=== PATIENT | male | born 1995 | race Caucasian/White ===

== ENCOUNTER 2017-07-13 09:11 | Emergency (ER) | payer BC, OTHER ==
[2017-07-13 10:01] VITALS: BP 120/69
--- NOTE | 2017-07-13 10:46 | UC ---
Skin Complaint HPI - HPI Summary HPI Summary: 21 year old male with skin complaint. c/o cyst to left upper nose that began today. States this happened before, eye became swollen, and need to go to a heat treating bluer for antibiotics. Previously he needed antibiotics and steroid injection. No fever. Presenting the same as before. has a pimple that previuosly became infected and became an abscess . [ End ] - History of Current Complaint Chief Complaint: UCSkin Time Seen by Provider: 07/13/17 09:57 Stated Complaint: NASAL COMPLAINT Hx Obtained From: Patient, Family/Ton Container Filler Onset/Duration: Gradual Onset Pain Intensity: 0 - Allergy/Home Medications Allergies/Adverse Reactions: Allergies Allergy/AdvReac Type Severity Reaction Status Date / Time No Known Allergies Allergy Verified 07/13/17 09:58 Review of Systems Skin: Other - acne on face and some swelling around the area Is Patient Immunocompromised?: No All Other Systems Reviewed And Are Negative: Yes PMH/Surg Hx/FS Hx/Imm Hx Previously Healthy: Yes - Surgical History Surgical History: None - Family History Known Family History: Positive: None - Social History Occupation: Student Lives: With Family Alcohol Use: None Substance Use Type: None Smoking Status (MU): Never Smoked Tobacco - Immunization History Vaccination Up to Date: Yes Physical Exam Triage Information Reviewed: Yes Appearance: Well-Appearing, No Pain Distress, Well-Nourished Vital Signs: Initial Vital Signs Temp 98.6 F 07/13/17 09:56 Pulse 63 07/13/17 09:56 Resp 16 07/13/17 09:56 BP 120/69 07/13/17 09:56 Pulse Ox 100 07/13/17 09:56 Vital Signs Reviewed: Yes Eye Exam: Normal ENT Exam: Normal Neck exam: Normal Respiratory Exam: Normal Cardiovascular Exam: Normal Musculoskeletal Exam: Normal Neurological Exam: Normal Psychological Exam: Normal Skin Exam: Normal Skin: Positive: Other - left aspect of nose with acne and swelling around the pimple. no fluctuance . no erythema. no discharge. Course/Dx - Course Course Of Treatment: mom requesting antibiotics so that this does not worsen . I did discuss the SE of antibiotics and they are aware of the SE. hot pack TID. f/u with derm. - Differential Diagnoses - Skin Complaint Differential Diagnoses: Abscess - Diagnoses Provider Diagnoses: abscess face Discharge - Discharge Plan Condition: Good Disposition: HOME Prescriptions: Doxycycline Hyclate 100 mg PO BID #20 tablet Referrals: Santos Chaney MD [Primary Care Provider] - 4 Days Additional Instructions: Due to your previous condition of getting an infected pimple on your face that caused an abscess we will start treatment at this time with oral antibiotics. if there are any concerns please return to your PCP or It Program Auditor.
== END 2017-07-13 10:57 | disposition home or self-care (01) ==
LOC: UCCORT 09:11
DX: J34.0 Abscess, furuncle and carbuncle of nose (principal)
CPT/HCPCS: 99212; G0463

== ENCOUNTER 2017-08-17 15:12 | Emergency (ER) | payer OTHER ==
[2017-08-17 16:06] VITALS: BP 136/52
--- NOTE | 2017-08-17 16:18 | UC ---
Throat Pain/Nasal Isaias HPI - HPI Summary HPI Summary: Sore throat starting yesterday. Congestion today but ST is better. No cough. - History of Current Complaint Chief Complaint: UCGeneralIllness Stated Complaint: FEVER SORE THROAT Time Seen by Provider: 08/17/17 16:09 Onset/Duration: Sudden Onset, Lasting Days - 2, Still Present Pain Intensity: 0 Associated Signs & Symptoms: Positive: Nasal Discharge, Fever. Negative: Hoarseness Related History: Seasonal Allergies - Allergies/Home Medications Allergies/Adverse Reactions: Allergies Allergy/AdvReac Type Severity Reaction Status Date / Time No Known Allergies Allergy Verified 08/17/17 16:06 Home Medications: Home Medications NK [No Home Medications Reported] 08/17/17 [History Confirmed 08/17/17] PMH/Surg Hx/FS Hx/Imm Hx Previously Healthy: Yes - Surgical History Surgical History: None - Family History Known Family History: Positive: Hypertension Negative: Cardiac Disease, Diabetes - Social History Occupation: Student Lives: With Family Alcohol Use: None Substance Use Type: None Smoking Status (MU): Never Smoked Tobacco - Immunization History Vaccination Up to Date: Yes Review of Systems Constitutional: Fever ENT: Sore Throat, Nasal Discharge Is Patient Immunocompromised?: No All Other Systems Reviewed And Are Negative: Yes Physical Exam Triage Information Reviewed: Yes Appearance: No Pain Distress, Well-Nourished, Ill-Appearing - mild Vital Signs: Initial Vital Signs Temp 100.2 F 08/17/17 15:58 Pulse 95 08/17/17 15:58 Resp 17 08/17/17 15:58 BP 136/52 08/17/17 15:58 Pulse Ox 100 08/17/17 15:58 Vital Signs Reviewed: Yes Eyes: Positive: Conjunctiva Clear ENT: Positive: Pharynx normal, TMs normal Neck: Positive: Supple, Nontender, Enlarged Nodes @ - bilateral anterior cervical Respiratory: Positive: Lungs clear Cardiovascular Exam: Normal Musculoskeletal Exam: Normal Neurological Exam: Normal Psychological Exam: Normal Skin Exam: Normal Throat Pain/Nasal Course/Dx - Differential Dx/Diagnosis Differential Diagnosis/HQI/PQRI: Peritonsillar Abscess, Pharyngitis, Tonsillitis , URI Provider Diagnoses: Viral pharyngitis Discharge - Discharge Plan Condition: Stable Disposition: HOME Patient Education Materials: Upper Respiratory Infection (ED), Pharyngitis (ED) Referrals: Nate Chávez MD [Primary Care Provider] -
== END 2017-08-17 16:31 | disposition home or self-care (01) ==
LOC: UCCORT 15:12
DX: J02.8 Acute pharyngitis due to other specified organisms (principal)
CPT/HCPCS: 87651; 99211; G0463

== ENCOUNTER 2018-01-15 17:28 | Emergency (ER) | payer OTHER ==
--- OUTSIDE RECORDS SUMMARY | 2018-01-15 18:20 | XMS REPORT ---
:1995 External Reference #:[id number] Author Organization [facility] Address [address] [place] [address] Phone [phone] Care Team Providers Name Role Phone Elan Barraza MD Care Team Information Game Programmer Unavailable Elan Barraza MD Primary Care Physician Unavailable Payers Type Date Identification Numbers Payment Provider Subscriber Commercial Effective: Policy Number: MVP Lee Sweet JR 2015 [id number] PayID: [id number] [address] [place] [address] Problems Description No Information Family History Date Family Member(s) Problem(s) Comments Father 52 Father Hypertension Mother Iron deficiency Mother 45 First Brother Hirschsprung's disease First Brother 13 Social History Type Date Description Comments Smoking Nonsmoker Allergies, Adverse Reactions, Alerts Date Description Reaction Status Severity Comments 01/12/2018 NKDA active Medications Medication Date Status Form Strength Qnty SIG Indications Ordering Provider No Active 01/12/2018 Active Unknown Medications Vital Signs Date Vital Result Comment 01/12/2018 BP Systolic 118 mmHg BP Diastolic 62 mmHg Heart Rate 62 /min Body Temperature 97.9 F Height 70 inches 5'10" Weight 137.00 lb BMI (Body Mass Index) 19.7 kg/m2 Results Description No Information Procedures Description No Information Plan of Care 01/12/2018 - Elan Barraza MDZ00.00 Encntr for general adult medical exam w/o abnormal findingsNew Labs:CBC Electronic-ALL Lab CompaniFerritin (Fma/ CMC/Centrex)AllNew Medication:No Active MedicationsComments:~B_~U_Medication Management~b_~u_ Patient Understands medications he's taking? Yes No Are there Barriers to Adherence? Yes No Has the patient been asked about herbal supplements and therapies, and OTC meds? Yes No
--- OUTSIDE RECORDS SUMMARY | 2018-01-15 18:20 | XMS REPORT ---
:1997 External Reference #:[id number] Author Organization [facility] Address [address] [place] [address] [place] [address] Phone [phone] Care Team Providers Name Role Phone Issa Rubin C.P.N.P Care Team Information Deputy Director Of Finance Unavailable Payers Type Date Identification Numbers Payment Provider Subscriber Commercial Effective: Policy Number: BC/DELMY [facility] Zohreh Sweet 2013 [id number] Expires: 2015 PayID: [id number] [address] [address] [place] [address] Commercial Effective: 2015 Policy Number: [facility] Babak Sweet Jr. [id number] PayID: [id number] [address] [place] [address] Problems Description No Active Problems Social History Type Date Description Comments Smoke-Free Home is smoke-free Allergies, Adverse Reactions, Alerts Date Description Reaction Status Severity Comments 01/30/2015 NKDA active Medications Medication Date Status Form Strength Qnty SIG Indications Ordering Provider Prednisone Hx Tablets 20mg qs 1 tablet S50.861A Issa 018 - by mouth Sharkness, twice C.P.N.P 018 daily for 5 days No Active Hx Unknown Medications 017 - 018 Doxycycline Hx Capsules 100mg 2caps 2 caps by Issa Monohydrate 017 - mouth Sharkness, once C.P.N.P 017 today No Active Hx Nate Medications 015 - Sendek, Gm 017 Immunizations CPT Code Status Date Vaccine Lot # [id number] Given 03/17/2017 Flu Inj Quadrivalent .5ml Preserve Free [id number] 74581 Given 01/08/2017 Hepatitis A Vaccine Adult Dose age 19+ [id number] 09710 Given 03/15/2016 Flu Inj Quadrivalent .5ml Preserve Free [id number] 14631 Given 02/02/2016 Meningococcal B Recombinant Protein And Outer [id number] Membrane [Bexsero] 18898 Given 01/01/2016 Meningococcal B Recombinant Protein And Outer [id number] Membrane [Bexsero] 96133 Given 01/30/2015 Meningococcal A,C,Y,W135 (Menactra) Preservative [id number] Free 95868 Given 01/30/2015 Flu Inj Quadrivalent .5ml Preserve Free [id number] 27783 Given 03/18/2014 Flu Inj Quadrivalent .5ml Preserve Free 40365 Given 03/29/2013 Flu Inj Quadrivalent .5ml Preserve Free 78117 Given 10/24/2012 HPV 4 Gardasil 4 66588 Given 06/15/2012 HPV 4 Gardasil 4 42633 Given 04/06/2012 Varicella (Chicken Pox) Immunization 21226 Given 04/06/2012 HPV 4 Gardasil 4 59857 Given 11/09/2009 TdaP Immunization Age 7+ 99949 Given 12/24/2002 DTaP Immunization under age 7 84803 Given 12/24/2002 MMR Virus Immunization 91089 Given 07/12/1999 DTaP Immunization under age 7 39733 Given 07/12/1999 Hib Vaccine 61144 Given 03/27/1999 Varicella (Chicken Pox) Immunization 41139 Given 03/27/1999 MMR Virus Immunization 20568 Given 12/27/1998 Hepatitis B Imm Age 0 to 19yr 39106 Given 06/29/1998 DTaP Immunization under age 7 63431 Given 06/29/1998 Hib Vaccine 10572 Given 04/20/1998 DTaP Immunization under age 7 16159 Given 04/20/1998 Hib Vaccine 53574 Given 02/16/1998 Hepatitis B Imm Age 0 to 19yr 48724 Given 02/16/1998 DTaP Immunization under age 7 91886 Given 02/16/1998 Hib Vaccine 82138 Given 01/06/1998 Hepatitis B Imm Age 0 to 19yr Vital Signs Date Vital Result Comment 01/07/2018 Weight 140.12 lb Weight in kg's 63.561 01/08/2017 Height 69 inches 5'9" Weight 139.31 lb Weight in kg's 63.192 Heart Rate 58 /min BP Systolic 136 mmHg BP Diastolic 69 mmHg BMI (Body Mass Index) 20.6 kg/m2 Body Mass Index Percentile 23 % Right ear audiology results 20 db Left ear audiology results 20 db Left Visual Acuity Distance 20/20 Corrective Lenses Right Visual Acuity Distance 20/20 Corrective Lenses 12/05/2016 Weight 139.00 lb Weight in kg's 63.050 Weight Percentile 28th Body Temperature 98.8 F 10/25/2016 Weight 138.00 lb Weight in kg's 62.597 Weight Percentile 27th Body Temperature 98.7 F 09/26/2016 Weight 140.00 lb Weight in kg's 63.504 Weight Percentile 31st Body Temperature 98.2 F 08/14/2016 Weight 141.00 lb Weight in kg's 63.958 Weight Percentile 33rd Heart Rate 79 /min BP Systolic 130 mmHg BP Diastolic 77 mmHg Blood Pressure Percentile 0 % 01/01/2016 Height 69.5 inches 5'9.50" Height Percentile 52 % Weight 137.25 lb Weight in kg's 62.257 Weight Percentile 31st Heart Rate 66 /min BP Systolic 128 mmHg BP Diastolic 77 mmHg Blood Pressure Percentile 74 % BMI (Body Mass Index) 20.0 kg/m2 Body Mass Index Percentile 23 % 01/30/2015 Height 69 inches 5'9" Height Percentile 49 % Weight 134.00 lb Weight in kg's 60.782 Weight Percentile 35th Heart Rate 55 /min BP Systolic 119 mmHg BP Diastolic 74 mmHg Blood Pressure Percentile 49 % BMI (Body Mass Index) 19.8 kg/m2 Body Mass Index Percentile 28 % Results Test Date Test Result H/L Range Note Laboratory test finding 03/17/2017 .Hemoglobin in house 14.8 Laboratory test finding 01/08/2017 .Hemoglobin in house 13.6 Laboratory test finding 09/26/2016 .Strep A, Rapid Neg Laboratory test finding 04/19/2015 .Hemoglobin in house 15.1 Laboratory test finding 01/30/2015 Hemoglobin 13 Procedures Description No Information Encounters Type Date Location Provider CPT E/M Dx Office Visit 01/07/2018 3:45p [facility] Meliza FarrisP 06813 S50.861A Office Visit 03/17/2017 2:00p Main Office Nurses Main Office 88487 D53.9 Office Visit 01/08/2017 7:45a [facility] Nate Chávez M.D. 65304 Z00.00 Z13.89 Z00.00 Office Visit 12/05/2016 9:00a [facility] Lora Sosa D.O. 12309 R59.0 Office Visit 10/25/2016 9:30a [facility] Nate Chávez M.D. 25008 I86.1 Office Visit 09/26/2016 9:15a [facility] Issa Rubin C.P.NFacundoP 29346 J02.9 Office Visit 08/14/2016 8:30a [facility] Nate Chávez M.D. 64860 Z13.89 Office Visit 01/01/2016 11:00a Main Office Nate Chávez M.D. 32244 Z00.00 Z13.89 Z00.00 Office Visit 01/30/2015 11:00a [facility] Nate Chávez M.D. 33208 V20.2 Plan of Care 01/07/2018 - Meliza FarrisPS50.861A Insect bite (nonvenomous) of right forearm, init encntrNew Medication:Prednisone 20 mgComments:Please call with any increase in redness, tenderness, swelling, fever or new symptoms develop, or there is no improvement over the next 24 hoursFollow up:As needed
[2018-01-15] MEDS ORDERED: methylPREDNISolone 125 MG* 2 ML VIAL IV ONE (18:53)
[2018-01-15 18:56] VITALS: BP 122/62
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
== END 2018-01-15 19:36 | disposition home or self-care (01) ==
LOC: UCCORT 17:28
DX: L50.9 Urticaria, unspecified (principal)
CPT/HCPCS: 96372; 99212; G0463; J2930

== ENCOUNTER 2018-12-27 07:57 | Emergency (ER) | payer OTHER ==
[2018-12-27 08:13] VITALS: BP 129/60
[2018-12-27] MEDS ORDERED: Tetan/Diph/Pertus SYR(Tdap)* 0.5 ML SYR(BOOSTRIX) use SYR IM ONE (08:20)
[2018-12-27] MEDS ORDERED: Fluorescein Sodium TOPICAL* 1 MG TEST STRIP OPHTHALMIC ONE (08:20)
[2018-12-27] MEDS ORDERED: Tetracaine 0.5% OPTH.SOL 4 ML* 1 DROP BTL ONE (08:24)
--- NOTE | 2018-12-27 08:27 | UC ---
Eye Complaint HPI - HPI Summary HPI Summary: per triage, Sudden onset of left eye foreign body sensation while driving tractor down the road about an hour ago. Erythema and watering. - History of Current Complaint Chief Complaint: UCEye Stated Complaint: EYE CONCERN Time Seen by Provider: 12/27/18 08:19 Hx Obtained From: Patient Onset/Duration: Sudden Onset Timing: Constant Pain Intensity: 0 Location of Injury: Eye Lid (upper) Aggravating Factor(s): Blinking Alleviating Factor(s): Nothing Associated Signs And Symptoms: Negative: Negative, Drainage (Purulent), Vision Impairment Bilateral - Risk Factors Penetrating Injury Risk Factor: Negative Globe Rupture Risk Factors: Negative - Allergies/Home Medications Allergies/Adverse Reactions: Allergies Allergy/AdvReac Type Severity Reaction Status Date / Time No Known Allergies Allergy Verified 12/27/18 08:08 PMH/Surg Hx/FS Hx/Imm Hx Previously Healthy: Yes - Surgical History Surgical History: None - Family History Known Family History: Positive: None, Hypertension - father, Diabetes - first cousin IDDM, Other - mother: allergies and hypothyroidism Negative: Cardiac Disease - Social History Alcohol Use: None Substance Use Type: None Smoking Status (MU): Never Smoked Tobacco - Immunization History Most Recent Tetanus Shot: Unsure Hx Tetanus, Diphtheria Vaccination: Yes - <10 YEARS AGO Vaccination Up to Date: Yes Review of Systems All Other Systems Reviewed And Are Negative: No Constitutional: Negative: Fever Skin: Negative: Rash Eyes: Positive: Drainage - tearing, Eye Redness. Negative: Diplopia, Photophobia ENT: Negative: Sore Throat, Ear Ache, Nasal Discharge Neurological: Negative: Headache Physical Exam Triage Information Reviewed: Yes Appearance: Well-Appearing Vital Signs: Initial Vital Signs Temp 97.9 F 12/27/18 08:07 Pulse 60 12/27/18 08:07 Resp 16 12/27/18 08:07 BP 129/60 12/27/18 08:07 Pulse Ox 100 12/27/18 08:07 Vital Signs Reviewed: Yes Eyes: Positive: Other: - visual acuity no correction, OD/OU/OS 20/13. No auricular adenopathy. No periorbital edema or rash. PERRL, EMOI. Conjunctiva OS= red and eye tearing, OD is clear. AC's clear. Tetracaine drop OS. Lids everted OS and tiny spec on inside upper lid, swept away with moist Qtip. OS stained, no uptake. OD flushed with sterile NaCl. pt tolerated well. ENT: Negative: Nasal drainage Neurological: Positive: Alert Psychological: Positive: Normal Response To Family, Age Appropriate Behavior Skin Exam: Normal Skin: Negative: Rashes Eye Complaint Course/Dx - Differential Dx/Diagnosis Differential Diagnosis/HQI/PQRI: Other - FB found and removed. No abrasions, ulcerations, perforations or dendrites. Provider Diagnosis: Acute foreign body of conjunctiva Discharge - Sign-Out/Discharge Documenting (check all that apply): Patient Departure All imaging exams completed and their final reports reviewed: No Studies - Discharge Plan Condition: Stable Disposition: HOME Prescriptions: Erythromycin OPHTH.OINT* [Ilotycin OPHTH.OINT*] 1 applic LEFT EYE TID 5 Days #1 ophth.oint Patient Education Materials: Eye Foreign Body (ED) Referrals: Maritza Covarrubias MD [Medical Doctor] - Additional Instructions: FOLLOW UP DR COVARRUBIAS'S OFFICE IF NOT BETTER IN 1-2 DAYS OR SOONER IF WORSE. - Billing Disposition and Condition Condition: STABLE Disposition: Home - Attestation Statements Provider Attestation: I was available for consult. This patient was seen by the DAVID. The patient was not presented to , seen by or examined by az -Jeffry Davis MD
[2018-12-27] MEDS ORDERED: Erythromycin OPTH OINT* APPLIC OINT LEFT EYE ONE (08:39)
== END 2018-12-27 08:54 | disposition home or self-care (01) ==
LOC: UCCORT 07:57
DX: T15.12XA Foreign body in conjunctival sac, left eye, initial encounter (principal); S00.252A Superficial foreign body of left eyelid and periocular area, initial encounter; X58.XXXA Exposure to other specified factors, initial encounter; Y93.89 Activity, other specified; Y92.410 Unspecified street and highway as the place of occurrence of the external cause
CPT/HCPCS: 65205; 99213; A9270-GY; G0463

== ENCOUNTER 2019-03-06 18:10 | Emergency (ER) | payer OTHER ==
--- OUTSIDE RECORDS SUMMARY | 2019-03-06 18:18 | XMS REPORT | Continuity of Care Document ---
:1995 External Reference #:[id number] Author Name Kirk Bishop N.P. Address [address] [place] [id number] Problems Description No Information Available Social History Type Date Description Comments Sex Unknown ETOH Use Denies alcohol use Tobacco Use Start: Unknown Patient has never smoked Allergies, Adverse Reactions, Alerts Description No Known Drug Allergies Medications Description No Information Available Immunizations CPT Code Status Date Vaccine Lot # [id number] Given 03/17/2017 Influenza Virus Vaccine,Quadrivalent,Split,Preserv Free, 0.5mL,[place] [address] Given 01/08/2017 Hepatitis A Vaccine, Adult Dosage 75567 Given 03/15/2016 Influenza Virus Vaccine,Quadrivalent,Split,Preserv Free, 0.5mL,[place] [address] Given 02/02/2016 Meningococcal B(Bexsero)protn otrMembran Vesicle [place]ccn 2 [place] [address] Given 01/01/2016 Meningococcal B(Bexsero)protn otrMembran Vesicle Vccn 2 [place] sche [address] Given 01/30/2015 Menactra/Menveo Meningococcal Vaccine 38402 Given 01/30/2015 Influenza Virus Vaccine,Quadrivalent,Split,Preserv Free, 0.5mL,[place] [address] Given 03/18/2014 Influenza Virus Vaccine,Quadrivalent,Split,Preserv Free, 0.5mL,[place] [address]87 Given 03/29/2013 Influenza Virus Vaccine,Quadrivalent,Split,Preserv Free, 0.5mL,Im 01198 Given 10/24/2012 HPV Vaccine (Gardasil) 3 Dose Schedule 36235 Given 06/15/2012 HPV Vaccine (Gardasil) 3 Dose Schedule 58541 Given 04/06/2012 Varicella (Chicken Pox) Immunization 04786 Given 04/06/2012 HPV Vaccine (Gardasil) 3 Dose Schedule 26919 Given 11/09/2009 Tdap (Adacel) Ages 7 And Above Only 92102 Given 12/24/2002 DTaP Immunization 7 Yrs & Younger 56376 Given 12/24/2002 MMR Virus Immunization 66355 Given 07/12/1999 DTaP Immunization 7 Yrs & Younger 85611 Given 07/12/1999 Hib ACTHiB Vaccine 4 Dose Schedule 37016 Given 03/27/1999 Varicella (Chicken Pox) Immunization 89166 Given 03/27/1999 MMR Virus Immunization 39146 Given 12/27/1998 Hepatitis B Vac Ped/Adolescent 3 Dose Schedule 96586 Given 06/29/1998 DTaP Immunization 7 Yrs & Younger 95921 Given 06/29/1998 Hib ACTHiB Vaccine 4 Dose Schedule 34600 Given 04/20/1998 DTaP Immunization 7 Yrs & Younger 91501 Given 04/20/1998 Hib ACTHiB Vaccine 4 Dose Schedule 70853 Given 02/16/1998 Hepatitis B Vac Ped/Adolescent 3 Dose Schedule 96755 Given 02/16/1998 DTaP Immunization 7 Yrs & Younger 15178 Given 02/16/1998 Hib ACTHiB Vaccine 4 Dose Schedule 93792 Given 01/06/1998 Hepatitis B Vac Ped/Adolescent 3 Dose Schedule Vital Signs Date Vital Result Comment 01/20/2019 12:36pm Body Temperature 99.0 F Weight 150.12 lb Heart Rate 57 /min BP Systolic 122 mmHg BP Diastolic 74 mmHg O2 % BldC Oximetry 98 % 10/09/2018 10:17am Body Temperature 99.3 F Weight 143.00 lb Heart Rate 54 /min BP Systolic 118 mmHg BP Diastolic 78 mmHg Height 69.5 inches 5'9.50" O2 % BldC Oximetry 98 % BMI (Body Mass Index) 20.8 kg/m2 Results Description No Information Available Procedures Description No Information Available Medical Devices Description No Information Available Encounters Description No Information Available Assessments Date Code Description Provider 01/20/2019 Z13.31 Encounter for screening for depression Kirk Bishop, N.P. 01/20/2019 M25.562 Pain in LEFT knee Kirk Bishop, N.P. 01/20/2019 R59.0 Localized enlarged lymph nodes Kirk Bishop, N.P. 01/20/2019 I88.9 Nonspecific lymphadenitis, unspecified Kirk Bishop, N.P. 10/09/2018 Z02.89 Encounter for other administrative Kirk Bishop N.P. examinations Plan of Treatment 01/20/2019 - Kirk Bishop N.P.Z13.31 Encounter for screening for depressionComments:denies increased feelings depression/anxiety at this timeM25.562 Pain in LEFT kneeComments:patient will f/u ortho as plannedLyme titer drawn oqlptF95.0 Localized enlarged lymph nodesComments:follow-up lab resultspatient agrees to monitor node and report changing size or characteristics, fever, weight lossI88.9 Nonspecific lymphadenitis, unspecified Functional Status Description No Information Available Mental Status Description No Information Available Referrals Description No Information Available
--- OUTSIDE RECORDS SUMMARY | 2019-03-06 18:18 | XMS REPORT | Continuity of Care Document ---
:1995 Author Organization [facility] Care Team Providers Name Role Phone JOSE SAN Admitting Physician JOSE SAN Attending Physician MARY ANN PINON Primary Care Physician Allergies and Intolerances No Known Allergies Medications Patient Not On Self-Medication Medications At Time Of Discharge No data in the system Problems No Data in the system Procedures No data in the system Results Radiology Results Order: MRI LT LOWER EXT JOINT WITH CONTRASTExam Completion Date:01/25/2019 09: 10:48 AM MRI LEFT LOWER JOINT WITH CONTRAST CLINICAL INFORMATION: -- Pain in left knee increased pain and locking episodes. Palpable pathologic medial plica that is tender. COMPARISON: Radiograph left knee same day.. PROCEDURE: Multiplanar multisequence MRI was performed following intra-articular injection of dilute gadolinium contrast. The injection procedure is describedin a separate report. FINDINGS: The ACL and PCL are intact. The medial and lateral collateral ligaments are intact. The quadriceps tendon and patellar tendon is intact. The medial and lateral collateral ligaments are intact. Complex radial tear involving the anterior horn and body of the lateral meniscus which surfaces superiorly. The medial meniscus is intact. 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 The medial and lateral compartment cartilage is intact. No acute osseous abnormality. No marrow edema. Thickened lateral patella plica. No Thayer's cyst. IMPRESSION: The visualized ligaments and tendons are intact. Complexradial tear involving the anterior horn and body of the lateral meniscus which surfaces superiorly. The medial meniscus is intact. 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 Thickened lateral patella plica. END OF IMPRESSION I have personallyreviewed the images and the Resident's/Fellow's interpretation and agree with or edited the findings. [facility] sub[facility] Radiology [facility]. All results are available to [facility] provider portal users. [facility] DICOM images are available to [facility] users only. [facility] DICOM images are not available to the [facility] provider portal users. There is no current [facility] functionality allowing images to be available through the IO to [facility] connectivity. Interpreted By: Bethany Beaver M.D. Electronically signed By: Elías Fink M.D. Read By: ELÍAS FINK Date: 01/25/2019 17:19Order: ARTHRO KNEE LTExam Completion Date:01/25/2019 09: 10:23 AM ARTHROGRAM LEFT KNEE CLINICAL INFORMATION: -- Pain in left knee COMPARISON: None. PROCEDURE: The risks and benefits of the procedure with discussed with the patientand informed consent obtained. Time out procedure was performed. The skin overlying the left knee was marked, cleansed and draped in the usual sterile fashion. Lidocaine used in the form of 1% was used to anesthetize the skin and the underlying tissue. A solution containing 0.2 cc of ProHance mixed with 10 cc of saline was obtained. Fluoroscopic assistance approximately 7 cc of the solution was injected into the patient's left knee. Total fluoroscopic time was 0.50 seconds and 2 images obtained at time of procedure. Patient tolerated the procedure well and was directed to the MRI suite for furtherimaging. END OF IMPRESSION [facility] submits Radiology results to [facility] and [facility] then provides those same results to [facility]. All results are available to [facility] provider portal users. [facility] DICOM images are available to the [facility] provider portal users only. [facility] DICOM images are not available to the [facility] provider portal users. There is no current [facility] functionality allowing images to be available through the [facility] to [facility] connectivity. Interpreted By: Dorcas Cunningham Electronically signed By: Siddhartha Smith M.D. Read By: SIDDHARTHA SMITH Date: 01/25/2019 17:21 Social History Code Code System Social History Observation Description Dates Observed [id number] SNOMED CT Current Smoking Status Never smoker UNK AdministrativeGender Sex Assigned At Unknown Vital Signs No data in the system Goals Section No data in the system Health Concerns No data in the systemEncounter Diagnosis Date Code Code System Diagnosis Status S83.272A ICD10 COMPLEX TEAR LM CURR LT KNEE INIT Active Advance Directives *RHIO - CONSENT IS YES Directive Type Effective Date Cupboard Builder Notes Supporting Document Name Address Phone No Directive Type 01/25/2019 9:36:25 Not Specified Not Specified Not Specified None No specified AM Encounters Encounter Diagnosis Location Date COMPLEX TEAR LM CURR LT KNEE INIT [facility] 01/25/2019 Family History Patient has no knowledge of family history Functional Status No data in the system Immunizations Vaccine Code Code System Vaccine Name Date Status UP TO DATE Completed Medical Equipment No data in the system Mental Status No data in the system Assessment and Plan Assessments No data in the systemPlan Of Treatment No data in the systemPending Tests No data in the system Hospital Discharge Instructions No data in the system Reason for Visit Reason for Visit FLUORO, MRI
[2019-03-06 18:26] VITALS: BP 121/58
--- NOTE | 2019-03-06 19:01 | UC ---
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 Feeling bad today with headache, malaise, chest pain with breathing. headache and lightheaded. - History of Current Complaint Chief Complaint: UCGeneralIllness Stated Complaint: FEVER/CHEST CONGESTION/ DIZZY Time Seen by Provider: 03/06/19 18:49 Hx Obtained From: Patient Onset/Duration: Sudden Onset, Lasting Days - 1, Worse Since - today Timing: Constant Severity Initially: Mild Severity Currently: Moderate Pain Intensity: 5 Character: Cough: Nonproductive Aggravating Factors: Allergens Alleviating Factors: Nothing Associated Signs And Symptoms: Positive: Fever - subjectively felt hot, Pleuritic Chest Pain Related History: Seasonal Allergies - Allergies/Home Medications Allergies/Adverse Reactions: Allergies Allergy/AdvReac Type Severity Reaction Status Date / Time No Known Allergies Allergy Verified 03/06/19 18:19 Home Medications: Home Medications Ibuprofen TAB* [Advil TAB*] 400 mg PO Q6H PRN 03/06/19 [History Confirmed ] PMH/Surg Hx/FS Hx/Imm Hx Previously Healthy: Yes - Surgical History Surgical History: None - Family History Known Family History: Positive: None, Hypertension - father, Diabetes - first cousin IDDM, Other - mother: allergies and hypothyroidism Negative: Cardiac Disease - Social History Occupation: Employed Full-time Lives: With Family Alcohol Use: None Substance Use Type: None Smoking Status (MU): Never Smoked Tobacco - Immunization History Most Recent Tetanus Shot: Unsure Hx Tetanus, Diphtheria Vaccination: Yes - <10 YEARS AGO Vaccination Up to Date: Yes Review of Systems All Other Systems Reviewed And Are Negative: Yes Constitutional: Positive: Fever, Fatigue Respiratory: Positive: Shortness Of Breath Cardiovascular: Positive: Chest Pain Neurological: Positive: Headache Physical Exam Triage Information Reviewed: Yes Appearance: No Pain Distress, Well-Nourished, Ill-Appearing - mild Vital Signs: Initial Vital Signs Temp 98.9 F 03/06/19 18:21 Pulse 69 03/06/19 18:21 Resp 16 03/06/19 18:21 BP 121/58 03/06/19 18:21 Pulse Ox 100 03/06/19 18:21 Vital Signs Reviewed: Yes Eyes: Positive: Conjunctiva Inflamed ENT: Positive: Pharynx normal, Nasal congestion - with allergic changes, TMs normal Neck: Positive: Supple, Nontender, Enlarged Nodes @ - shotty Respiratory: Positive: Chest non-tender, Lungs clear, Wheezing - faint wheeze with coughing. Cardiovascular Exam: Normal Musculoskeletal Exam: Normal Neurological Exam: Normal Psychological Exam: Normal Skin Exam: Normal Diagnostics - Radiology No standard instances Radiology Interpretation Completed By: ED Physician Summary of Radiographic Findings: Hyperinflation of the lungs. No acute finding. Re-Evaluation - Re-Evaluation First Eval Re-Evaluation Time: 19:38 Change: Improved - breathing is a little easier after the nebulizer. Still having some pain with deep breathing. Respiratory Course/Dx - Differential Dx/Diagnosis Differential Diagnosis/HQI/PQRI: Aspiration, Asthma, Lower Resp Infection, SARS Provider Diagnosis: Acute bronchospasm, Allergy to mold Discharge ED - Sign-Out/Discharge Documenting (check all that apply): Patient Departure All imaging exams completed and their final reports reviewed: No - Discharge Plan Condition: Stable Disposition: HOME Prescriptions: predniSONE TAB* [Deltasone 20 MG TAB*] 60 mg PO DAILY #18 tab Patient Education Materials: Bronchospasm (ED), Prednisone (By mouth) Referrals: Kirk Bishop NP [Primary Care Provider] - - Billing Disposition and Condition Condition: STABLE Disposition: Home
[2019-03-06] MEDS ORDERED: Albuterol/Ipratropium NEB.SOL* Albuterol 2.5 MG/Ipratropium 0.5 MG 3 ML INH ONE (19:14)
[2019-03-06] MEDS ORDERED: predniSONE TAB* 20 MG PO ONE (19:38)
--- NOTE | 2019-03-07 08:46 | UC ---
- Progress Note Progress Note: Lubrication Worker: Perry Nguyen Daniel, ([id number]) Hide Worker: MOY ( NUANCE) Report Date: 03/06/2019 18:55:00 Report Status: Final ====== Start of Report Content Patient Name: PEDRITO JESSICA Medical Record#: [id number] Ordering Physician: Jackson Crawley MD Acct.#: [id number] : 1995 Age: 23 Sex: M Location: [facility] Exam Date: 03/06/19 185 ADM Status: [facility] ER Order Information: CHEST PA LAT 2 VWS Accession Number: [id number] CPT: 46295 HISTORY: Inhaled silage, painful breathing. COMPARISONS: None relevant available at the time of dictation. VIEWS: 4: Frontal dual-energy and lateral views of the chest. FINDINGS: CARDIOMEDIASTINAL SILHOUETTE: The cardiomediastinal silhouette is normal. JORDYN: The jordyn are normal. PLEURA: The costophrenic angles are sharp. No pleural abnormalities are noted. LUNG PARENCHYMA: There is hyperinflation with flattening of the diaphragm and expansion of the retrosternal airspace. ABDOMEN: The upper abdomen is clear. There is no subphrenic gas. BONES AND SOFT TISSUES: No bone or soft tissue abnormalities are noted. OTHER: None. IMPRESSION: HYPERINFLATION. NO ACTIVE CARDIOPULMONARY DISEASE. R0 Preliminary Imaging Read R0 <Electronically signed by Perry Nguyen MD in OV> 03/07/19 0816 Dictated By: Perry Nguyen MD Dictated Date /Time: 03/07/19814 Transcribed Date/Time: 03/07/19814 Copy to: CC:Jackson Crawley MD; Kirk Bishop [employer]LECT[employer]IC TRUCKER Imaging - [facility] - [facility] - [facility] [id number] [place] [id number] ph ([phone]) ph ([phone]) ph ([phone]) ==== End of Report Content Treated for bronchospasm, no change in treatment plan. Course/Dx - Diagnoses Provider Diagnoses: Acute bronchospasm, Allergy to mold Discharge ED - Sign-Out/Discharge Documenting (check all that apply): Post-Discharge Follow Up All imaging exams completed and their final reports reviewed: Yes - Discharge Plan Condition: Stable Disposition: HOME Prescriptions: predniSONE TAB* [Deltasone 20 MG TAB*] 60 mg PO DAILY #18 tab Patient Education Materials: Prednisone (By mouth), Bronchospasm (ED) Referrals: Kirk Bishop NP [Primary Care Provider] - - Billing Disposition and Condition Condition: STABLE Disposition: Home
== END 2019-03-06 19:55 | disposition home or self-care (01) ==
LOC: UCCORT 18:10
DX: J98.01 Acute bronchospasm (principal); T78.49XA Other allergy, initial encounter; J30.89 Other allergic rhinitis; X58.XXXA Exposure to other specified factors, initial encounter
CPT/HCPCS: 71046; 99212; A9270-GY; G0463; J7512

== ENCOUNTER 2019-03-20 09:24 | Emergency (ER) | payer OTHER ==
[2019-03-20 09:45] VITALS: BP 133/56
--- NOTE | 2019-03-20 10:18 | UC ---
UC General HPI - HPI Summary HPI Summary: Patient is a 23-year-old male presenting with mother for general fatigue, chest tightness, dizzy spells, swollen lymph node in neck 2 weeks. Node is not painful. Denies URI symptoms. Patient states he was treated here 2 weeks ago and was given a course of steroids which he finished on Friday. Notes that after he finished them his symptoms started up again. Notes intermittent fevers and chills. Notes intermittent body aches. Denies nausea, vomiting, and diarrhea. Denies abdominal pain. Denies urinary symptoms. Mother states patient was seen in January for swollen lymph node and blood work done that revealed elevated WBCs. Mother states she is here because her PCP stated he just has a virus but she wants further workup. Notes concern for Lyme disease and mono. Patient has not been taking any medications for his symptoms. Denies history of asthma. Denies history of mono. Patient is not a smoker. - History of Current Complaint Chief Complaint: UCGeneralIllness Stated Complaint: FATIGUE, CHEST CONGESTION Hx Obtained From: Patient Onset/Duration: Gradual Onset, Lasting Weeks Current Severity: Mild Pain Intensity: 2 - Allergy/Home Medications Allergies/Adverse Reactions: Allergies Allergy/AdvReac Type Severity Reaction Status Date / Time No Known Allergies Allergy Verified 03/20/19 09:45 PMH/Surg Hx/FS Hx/Imm Hx - Surgical History Surgical History: None - Family History Known Family History: Positive: None, Hypertension - father, Diabetes - first cousin IDDM, Other - mother: allergies and hypothyroidism Negative: Cardiac Disease - Social History Alcohol Use: None Substance Use Type: None Smoking Status (MU): Never Smoked Tobacco - Immunization History Most Recent Tetanus Shot: Unsure Hx Tetanus, Diphtheria Vaccination: Yes - <10 YEARS AGO Vaccination Up to Date: Yes Review of Systems All Other Systems Reviewed And Are Negative: Yes Constitutional: Positive: Fever, Chills, Fatigue Skin: Positive: Negative Eyes: Positive: Negative. Negative: Blurred Vision, Diplopia, Photophobia ENT: Negative: Sore Throat, Ear Ache, Nasal Discharge, Sinus Congestion, Sinus Pain/Tenderness Respiratory: Positive: Shortness Of Breath, Other - Chest tightness. Negative: Cough Cardiovascular: Positive: Negative. Negative: Palpitations, Chest Pain Gastrointestinal: Positive: Negative. Negative: Abdominal Pain, Vomiting, Diarrhea, Nausea Genitourinary: Positive: Negative Musculoskeletal: Positive: Myalgia - of BLEs Neurological: Positive: Headache. Negative: Paresthesia, Numbness Physical Exam Triage Information Reviewed: Yes Appearance: Well-Appearing, No Pain Distress, Well-Nourished Vital Signs: Initial Vital Signs Temp 99.4 F 03/20/19 09:37 Pulse 72 03/20/19 09:37 Resp 16 03/20/19 09:37 BP 133/56 03/20/19 09:37 Pulse Ox 100 03/20/19 09:37 Vital Signs Reviewed: Yes Eyes: Positive: Conjunctiva Clear ENT Exam: Normal ENT: Positive: Hearing grossly normal, Pharynx normal, TMs normal, Uvula midline. Negative: Pharyngeal erythema, Nasal congestion, Nasal drainage, TM bulging, TM dull, TM red, Tonsillar swelling, Tonsillar exudate, Trismus, Muffled voice, Hoarse voice, Sinus tenderness Neck exam: Normal Neck: Positive: Supple, Nontender, Enlarged Nodes @ - Right anterior cervical node Respiratory Exam: Normal Respiratory: Positive: Lungs clear, Normal breath sounds, No respiratory distress, No accessory muscle use. Negative: Crackles, Rhonchi, Stridor, Wheezing, Plerual rub Cardiovascular Exam: Normal Cardiovascular: Positive: RRR, Pulses Normal. Negative: Tachycardia Musculoskeletal Exam: Normal Musculoskeletal: Positive: Strength Intact, ROM Intact, No Edema Neurological: Positive: Alert, Muscle Tone Normal Psychological Exam: Normal Psychological: Positive: Age Appropriate Behavior Skin: Positive: Other - Patient is flushed Course/Dx - Course Course Of Treatment: Discussed with patient and mother likely viral etiology as previously told to them by their PCP. Patient and mother requested blood draw for basic blood work and check for Lyme disease and mono. The patient received the blood draw here. Informed them that the results will be available to be reviewed by their PCP. Instructed them to attend his follow-up appointment next Friday with his PCP for further review and evaluation. Instructed to continue taking Tylenol and ibuprofen as directed for fever and pain relief. Instructed to get plenty of rest and fluids. Patient and mother voiced understanding and agreed to treatment plan. - Diagnoses Provider Diagnosis: Fatigue, Chest congestion, Swelling of lymph node Discharge ED - Sign-Out/Discharge Documenting (check all that apply): Patient Departure All imaging exams completed and their final reports reviewed: No Studies - Discharge Plan Condition: Stable Disposition: HOME Referrals: Kirk Bishop NP [Primary Care Provider] - 1 Week Additional Instructions: You had a blood draw today for basic blood work to test for Lyme disease and mono. You may continue to take ibuprofen and Tylenol as directed for pain and fever relief. Make sure he get plenty of rest and drink plenty of fluids. Important that you attend your follow-up appointment with her PCP next Friday. Go to the emergency room if you experience worsening symptoms, including fever greater than 105 and increased difficulty breathing. - Billing Disposition and Condition Condition: STABLE Disposition: Home - Attestation Statements Provider Attestation: I was available for consult. This patient was seen by the DAVID. The patient was not presented to, seen by, or examined by me. -Angel
[2019-03-20 14:49] LABS: ABS Basophils 0.1 10^3/ul (0-0.2); ABS Eosinophils 0.3 10^3/ul (0-0.6); ABS Lymphocytes 1.5 10^3/ul (1.0-4.8); ABS Neutrophils 7.5 10^3/ul (1.5-7.7); Eosinophil % 2.7 %; Hematocrit 45 % (42-52); Hemoglobin 15.3 g/dL (14.0-18.0); Lymphocyte % 14.6 %; Mean Corpuscular HGB Conc 34 g/dL (31-36); Mean Corpuscular Hemoglobin 30 pg (27-31); Mean Corpuscular Volume 89 fL (80-94); Mean Platelet Volume 8.1 fL (7.4-10.4); Platelet Count 241 10^3/uL (150-450); Red Blood Count 5.06 10^6 /uL (4.18-5.48); Red Cell Distribution Width 14 % (10-15); White Blood Count 10.3 10^3/uL (3.5-10.8)
--- NOTE | 2019-03-22 07:12 | UC ---
- Progress Note Progress Note: Lyme neg no change ljj 03/22/19 Course/Dx - Diagnoses Provider Diagnoses: Fatigue, Chest congestion, Swelling of lymph node Discharge ED - Sign-Out/Discharge Documenting (check all that apply): Post-Discharge Follow Up All imaging exams completed and their final reports reviewed: No Studies - Discharge Plan Condition: Stable Disposition: HOME Referrals: Kirk Bishop PROMOTIONAL REPRESENTATIVE [Primary Care Provider] - 1 Week Additional Instructions: You had a blood draw today for basic blood work to test for Lyme disease and mono. You may continue to take ibuprofen and Tylenol as directed for pain and fever relief. Make sure he get plenty of rest and drink plenty of fluids. Important that you attend your follow-up appointment with her PCP next Friday. Go to the emergency room if you experience worsening symptoms, including fever greater than 105 and increased difficulty breathing. - Billing Disposition and Condition Condition: STABLE Disposition: Home
[2019-03-23 12:20] LABS: EBV Capsid Ag IgG Ab Negative (Negative); EBV Capsid Ag IgM Ab Negative (Negative); Epstein-Barr Nuclear Antigen Negative (Negative)
== END 2019-03-20 10:56 | disposition home or self-care (01) ==
LOC: UCCORT 09:24
DX: R53.83 Other fatigue (principal); R09.89 Other specified symptoms and signs involving the circulatory and respiratory systems; R59.0 Localized enlarged lymph nodes
CPT/HCPCS: 36415; 85025; 86308; 86618; 86664; 86665; 99211; G0463